=== PATIENT | female | born 1995 | race Caucasian/White ===

== ENCOUNTER 2016-12-21 08:02 | Inpatient (IN) ==
[2016-12-21 08:34] LABS: URINE SOURCE VOIDED
[2016-12-21 08:45] LABS: BILIRUBIN URINE NEGATIVE (NEGATIVE); BLOOD URINE 4+ (NEGATIVE); CLARITY VERY CLOUDY (CLEAR); COLOR AMBER; GLUCOSE URINE NEGATIVE (NEGATIVE); LEUKOCYTES URINE 1+ (NEGATIVE); NITRITE URINE NEGATIVE (NEGATIVE); PROTEIN URINE 1+(30 mg/dL) mg/dL (NEGATIVE); SP GRAVITY URINE 1.015; UROBILINOGEN URINE NORMAL
[2016-12-21 08:54] LABS: UR AMPHETAMINES QUAL NONE DETECTED (NONE DETECT); UR BARBITUATES QUAL NONE DETECTED (NONE DETECT); UR BENZODIAZEPIN QUAL NONE DETECTED (NONE DETECT); UR CANNABINOIDS QUAL NONE DETECTED (NONE DETECT); UR COCAINE QUAL NONE DETECTED (NONE DETECT); UR MDMA QUAL NONE DETECTED (NONE DETECT); UR METHADONE QUAL NONE DETECTED (NONE DETECT); UR METHAMPHETAMINE QUAL NONE DETECTED (NONE DETECT); UR OPIATES QUAL NONE DETECTED (NONE DETECT); UR OXYCODONE QUAL NONE DETECTED (NONE DETECT); UR PCP QUAL NONE DETECTED (NONE DETECT); UR TCA QUAL NONE DETECTED (NONE DETECT)
[2016-12-21] MEDS ORDERED: REGLAN PO ONE (08:57)
[2016-12-21] MEDS ORDERED: LR 500 ML IV ONE (08:57)
[2016-12-21] MEDS ORDERED: KEFZOL 1 GM/D5W 1 GM/50 ML IVPB IV PRN (08:57)
[2016-12-21] MEDS ORDERED: PEPCID PO ONE (08:57)
[2016-12-21] MEDS ORDERED: REGLAN IV ONE (09:09)
[2016-12-21] MEDS ORDERED: BICITRA PO ONE (09:09)
[2016-12-21] MEDS ORDERED: PEPCID IV ONE (09:09)
[2016-12-21 09:17] LABS: MANUAL DIFF NEEDED? NO
[2016-12-21 09:19] LABS: BASO% 0.1 % (0.0-0.8); EOS# 0.21 X1000 (0.0-0.7); EOS% 1.3 % (0.0-10.0); HEMATOCRIT 34.7 % (37.0-47.0); HEMOGLOBIN 11.6 g/dL (12.0-16.0); IMM GRAN# 0.04 X1000 (0.0-0.04); IMM GRAN% 0.2 % (0.0-0.5); LYMPH# 1.89 X1000 (1.2-3.4); LYMPH% 11.6 % (20.5-51.1); MCH 29.1 PG (27-31); MCHC 33.4 g/dL (33-37); MONO# 0.93 X1000 (0.11-0.59); MONO% 5.7 % (1.7-9.3); MPV 11.1 FL (7.4-10.4); NEUT% 81.1 % (42.2-75.2); PLT 336 X1000 (130-400); RBC 3.99 XMIL (4.2-5.4)
[2016-12-21] MEDS: LR 1,000 ML IV SCH ×2 (10:06→20:09)
[2016-12-21] MEDS ORDERED: PITOCIN ONE (10:18)
[2016-12-21] MEDS ORDERED: EPHEDRINE ONE (10:19)
[2016-12-21 10:20] LABS: RAPID HIV PRESUMPTIVE NEGATIVE
[2016-12-21] MEDS ORDERED: FENTANYL ONE (10:20)
[2016-12-21] MEDS ORDERED: DURAMORPH ONE (10:20)
[2016-12-21 10:25] LABS: RPR NON-REACTIVE (NONREACTIVE)
[2016-12-21] MEDS ORDERED: HYDROXYZINE IM PRN (10:25)
[2016-12-21] MEDS ORDERED: DEMEROL IM PRN (10:25)
[2016-12-21] MEDS ORDERED: M-M-R II VACCINE SUBQ ONE (10:25)
[2016-12-21] MEDS ORDERED: MYLICON PO PRN (10:25)
[2016-12-21] MEDS ORDERED: NORCO-5 PO PRN ×2 (10:25→11:26)
[2016-12-21] MEDS ORDERED: AMBIEN PO PRN (10:25)
[2016-12-21] MEDS ORDERED: DULCOLAX PR PRN (10:25)
[2016-12-21] MEDS ORDERED: BOOSTRIX VACCINE IM ONE (10:25)
[2016-12-21] MEDS ORDERED: CYTOTEC PO PRN (10:25)
[2016-12-21] MEDS ORDERED: DEMEROL PO PRN ×2 (10:25)
[2016-12-21] MEDS ORDERED: PITOCIN 20 UNITS/LR 20 UNITS/1,000 ML IV.SOLN IV ONE (10:25)
[2016-12-21] MEDS ORDERED: PITOCIN IM PRN (10:25)
[2016-12-21] MEDS ORDERED: PITOCIN 20 UNITS/LR 40 UNITS/2,000 ML IV.SOLN ONE (10:25)
[2016-12-21] MEDS ORDERED: PHENERGAN IM PRN (10:25)
[2016-12-21] MEDS ORDERED: HYDROXYZINE PO PRN (10:25)
[2016-12-21] MEDS ORDERED: ZOFRAN ODT PO PRN (11:25)
[2016-12-21] MEDS ORDERED: BENADRYL IV PRN (11:25)
[2016-12-21] MEDS ORDERED: NARCAN INJ PRN (11:25)
[2016-12-21] MEDS ORDERED: ZOFRAN IV PRN ×2 (11:25)
[2016-12-21] MEDS ORDERED: NORCO-10 PO PRN (11:27)
[2016-12-21] MEDS ORDERED: DILAUDID IV PRN (11:30)
--- NOTE | 2016-12-21 11:33 | HISTORY AND PHYSICAL ---
HISTORY OF PRESENT ILLNESS: The patient is a 21-year-old female, 2, para 1-0-0-1, who is admitted at this time for repeat for delivery. She has had a previous and was scheduled for a repeat in [place], and she has had no care here. We were not able to obtain her records from [place], but she was scheduled to have a today. She comes in at this time with spontaneous rupture of membranes, and because of her previous C- section, she is, therefore, admitted at this time for repeat for delivery. PAST MEDICAL HISTORY: None. PAST SURGICAL HISTORY: . MEDICINES: vitamins. ALLERGIES: None. PHYSICAL EXAMINATION: GENERAL: Well-developed female. HEENT: Benign. NECK: Supple. LUNGS: Clear. CARDIOVASCULAR: Regular rate and rhythm. ABDOMEN: Soft, nontender. EXTREMITIES: Without clubbing, cyanosis, or edema. ASSESSMENT AND PLAN: Term intrauterine . Previous . Spontaneous rupture of membranes. Admitted at this time for repeat for delivery. cc: Joey Mar MD
[2016-12-21] MEDS: TORADOL IV SCH ×3 (12:02→23:28)
[2016-12-21] MEDS: MYLICON PO SCH ×4 (12:47→23:29)
[2016-12-21] MEDS: NORCO-10 PO PRN (13:32)
--- NOTE | 2016-12-21 14:06 | OPERATIVE NOTE ---
PROCEDURE DATE : 12/21/2016 PREOPERATIVE DIAGNOSES: 1. Term intrauterine . 2. Little care. 3. Previous section. 4. Spontaneous rupture of membranes. POSTOPERATIVE DIAGNOSES: 1. Term intrauterine . 2. Little care. 3. Previous section. 4. Spontaneous rupture of membranes. PROCEDURE: A repeat lower transverse section. ANESTHESIA: Spinal. FINDINGS: The patient had a female infant born, weighed 6-1/2 pounds, Apgars were 9 and 10, and one nuchal cord. DESCRIPTION OF OPERATION: The patient was taken to the operating room, given Ancef IV and underwent spinal anesthesia. Good heart tones were obtained. She was prepped and draped in a sterile fashion. Thrombosis stockings were placed. We made a Pfannenstiel skin incision over a previous incision site, sharply dissected down to fascia. The fascia was adhered to the rectus muscle, was taken down using Doll scissors and a knife. We entered the peritoneum, dissected down to create the bladder flap. A low transverse incision was made. The infant was delivered using fundal pressure. Cord blood was obtained. The placenta was removed. She received IV Pitocin. The uterus was externalized and cleaned with lap. The incision was closed with #1 chromic in a locking fashion, single layer closure. I put one [id number] in the left corner for hemostasis. The uterus was put back in its anatomic position. Irrigation done with good hemostasis noted throughout. The rectus muscle was closed with #0 chromic suture. Hemostasis was maintained with Bovie. The fascia was closed with #1 Vicryl. Subcuticularly 3-0 Vicryl was used. The skin was closed with a 4-0 Biosyn. Estimated blood loss was 400 mL. Mother and infant are doing well at this time. cc: Joey Mar MD
[2016-12-21 15:43] LABS: RUBELLA SCREEN IMMUNE (IMMUNE)
[2016-12-21] MEDS: PERICOLACE PO SCH ×2 (19:52→23:28)
[2016-12-21] MEDS ORDERED: PITOCIN 10 UNITS/LR 10 UNIT/1,000 ML IV.SOLN IV SCH (20:00)
[2016-12-22 05:50] LABS: HEMATOCRIT 30.3 % (37.0-47.0); HEMOGLOBIN 9.9 g/dL (12.0-16.0); MCH 28.9 PG (27-31); MCHC 32.7 g/dL (33-37); MCV 88.3 FL (81-99); MPV 11.8 FL (7.4-10.4); RBC 3.43 XMIL (4.2-5.4)
[2016-12-22] MEDS ORDERED: LR 1,000 ML IV SCH (10:25)
[2016-12-22 10:54] LABS: HEPATITIS B SURFACE ANTIGEN SEE COMMENTS
[2016-12-22] MEDS: MYLICON PO SCH ×4 (11:08→19:43)
[2016-12-22] MEDS: NORCO-10 PO PRN ×3 (11:08→21:02)
[2016-12-22 11:14] LABS: HIV ANTIBODY SCREEN SEE COMMENTS
[2016-12-22] MEDS: MOTRIN PO PRN (16:27)
[2016-12-22] MEDS: PERICOLACE PO SCH (19:42)
[2016-12-23] MEDS: PERICOLACE PO SCH (02:52)
[2016-12-23] MEDS: MYLICON PO SCH (02:52)
[2016-12-23] MEDS: MOTRIN PO PRN (05:49)
[2016-12-23] MEDS: NORCO-10 PO PRN (05:49)
--- NOTE | 2016-12-23 07:28 | DISCHARGE SUMMARY ---
ADMISSION DATE: 12/21/2016 DISCHARGE DATE: 12/23/2016 ADMISSION DIAGNOSIS: Term for repeat section. PRINCIPAL DIAGNOSIS: Term for repeat section. PROCEDURE: Repeat . SUMMARY: Candice Wilson is a 21-year-old, 2, para 1-0-0-1, who was admitted for repeat C- section on 12/21/2016. She previously had a section and was scheduled for a repeat C- section in [place]. She has had no care in [place]. We were not able to obtain records from [place]. She also had spontaneous rupture of membranes. With all these indications, Dr. Mar proceeded with a repeat . This was done under spinal anesthesia, and a 6 pounds 2 ounce female infant was delivered. Apgars were 9 at 1 minute and 10 at 5 minutes. There were no intraoperative complications. Following delivery, the patient did well. She remained afebrile and all vital signs were stable. She had an admission hemoglobin and hematocrit of 11.6/34.7; discharge hemoglobin and hematocrit being 9.9/30.3. On the day of discharge, cardiac and pulmonary examinations were normal. Bowel and bladder function was normal. Her incision was clean and dry. She was having no scant bleeding. Ms. Wilson will be discharged today. We will see her back in the office in a week. Routine discharge instructions, activity limitations, and precautions were discussed in detail. cc: MD Joey Garland MD
[2016-12-23 07:52] VITALS: BP 117/79
== END 2016-12-23 12:40 | disposition home or self-care (01) ==
LOC: P.OPLD 08:02 → P.LD 08:07 → P.WC 12:55
PROVIDERS: ADMIT Obstetrics & Gynecology; ATTEND Obstetrics & Gynecology